=== PATIENT | female | born 1955 | race Two or more races ===

== ENCOUNTER 2023-12-18 22:08 | Emergency (ER) | payer OTHER ==
[~2023-12-18] VITALS: Ht 160 cm; Wt 75.0 kg
[2023-12-18 22:10] VITALS: BP 178/81; RESP 18; O2SAT 98
[2023-12-18 22:12] VITALS: PULSE 78
== END 2023-12-19 00:07 | disposition left against medical advice (07) ==
LOC: EDBD 22:08 → ER 22:08
DX: R42 Dizziness and giddiness (principal); R11.0 Nausea; Z53.21 Procedure and treatment not carried out due to patient leaving prior to being seen by health care provider
CPT/HCPCS: 93005